=== PATIENT | female | born 1995 | race Caucasian/White ===

== ENCOUNTER 2018-07-25 11:31 | Emergency (ER) | payer MEDICAID ==
[2018-07-25 11:39] VITALS: BP 113/74; PULSE 96; RESP 18; TEMP 97.9; O2SAT 99
[2018-07-25 12:13] LABS: HCG,QUALITATIVE URINE NEGATIVE (NEGATIVE)
[2018-07-25 12:14] LABS: SQUAMOUS EPITHIAL 12 /hpf (0-5); URINE BACTERIA RARE (<OCC); URINE BILIRUBIN NEGATIVE (NEGATIVE); URINE BLOOD 3+ (NEGATIVE); URINE CLARITY Hazy (Clear); URINE COLOR Yellow (YELLOW); URINE GLUCOSE (UA) NORMAL (Normal); URINE LEUKOCYTE ESTERASE NEG Leu/uL (Negative); URINE PROTEIN NEGATIVE (NEGATIVE)
[2018-07-25 12:48] LABS: BARBITURATES, UR NEGATIVE (NEGATIVE); BENZODIAZEPINES, UR NEGATIVE (NEGATIVE); PHENCYCLIDINE, UR NEGATIVE (NEGATIVE)
--- NOTE | 2018-07-25 12:55 | C.PDOC ---
History Of Present Illness 23-year-old female presents to the emergency department requesting detox from IV Heroin. Patient states she has been using for the past seven years, and uses approx 1gram daily. Last use was this morning. Patient denies SI/HI, nausea/vomiting, chest pain, SOB. No other complaints at this time. Time Seen by Provider: 07/25/18 11:44 Chief Complaint (Nursing): Substance Abuse History Per: Patient History/Exam Limitations: no limitations Modifying Factor(s): Narcotics Severity: Moderate Past Medical History Reviewed: Historical Data, Nursing Documentation, Vital Signs Vital Signs: Last Vital Signs Temp 97.9 F 07/25/18 11:35 Pulse 96 H 07/25/18 11:35 Resp 18 07/25/18 11:35 BP 113/74 07/25/18 11:35 Pulse Ox 99 07/25/18 11:35 - Medical History PMH: No Chronic Diseases Family History: States: No Known Family Hx - Social History Hx Alcohol Use: No Hx Substance Use: Yes (heroin iv) - Immunization History Hx Tetanus Toxoid Vaccination: No Hx Influenza Vaccination: No Hx Pneumococcal Vaccination: No Review Of Systems Constitutional: Negative for: Fever, Chills Cardiovascular: Negative for: Chest Pain, Palpitations Respiratory: Negative for: Shortness of Breath Gastrointestinal: Negative for: Nausea, Vomiting, Abdominal Pain Psych: Negative for: Psychosis, Suicidal ideation, Withdrawal Physical Exam - Physical Exam Appears: Well, Non-toxic, No Acute Distress Skin: Warm, Dry, No Rash Head: Atraumatic Eye(s): bilateral: Normal Inspection Oral Mucosa: Moist Chest: Symmetrical Cardiovascular: Rhythm Regular Respiratory: Normal Breath Sounds, No Rales, No Rhonchi, No Wheezing Gastrointestinal/Abdominal: Normal Exam, Bowel Sounds, Soft, No Tenderness Extremity: Normal ROM, No Deformity Neurological/Psych: Oriented x3 ED Course And Treatment O2 Sat by Pulse Oximetry: 99 (RA) Pulse Ox Interpretation: Normal Progress Note: UA, UDS ordered and reviewed. Patient then eloped from ED. Disposition - Disposition Disposition: ELOPEMENT - ER ONLY Disposition Time: 12:35 Condition: STABLE Forms: [employer] (Jordanian) - Clinical Impression Clinical Impression: Heroin dependence - Scribe Statement The provider has reviewed the documentation as recorded by the Scribe (Sixto Goel) Provider Attestation: All medical record entries made by the Scribe were at my direction and personally dictated by me. I have reviewed the chart and agree that the record accurately reflects my personal performance of the history, physical exam, medic al decision making, and the department course for this patient. I have also personally directed, reviewed, and agree with the discharge instructions and disposition.
[2018-07-25 13:13] LABS: OPIATES, UR POSITIVE (NEGATIVE)
== END 2018-07-25 12:36 | disposition left against medical advice (07) ==
LOC: C.ER 11:31
DX: F11.20 Opioid dependence, uncomplicated (principal)